=== PATIENT | female | born 1965 | race Caucasian/White ===

== ENCOUNTER 2019-01-17 14:36 | Emergency (ER) | payer SELFPAY ==
[2019-01-17] MEDS ORDERED: Sodium Chloride 0.9% 10 ML Syringe FLUSH PRN (15:13)
[2019-01-17] MEDS ORDERED: MVI, Adult with Vitamin K 10 ML, Thiamine 100 MG, Folic Acid 1 MG, Magnesium Sulfate 3 ... IV SCH ×5 (15:30)
[2019-01-17 15:57] LABS: ACETAMINOPHEN < 2.0 ug/mL
--- NOTE | 2019-01-17 16:32 | CR ---
CLINICAL DATA: Feeling ill. AP CHEST, 17 JAN 2019: No priors. The heart size is normal. There is a poorly defined infiltrate in the right middle lobe that obscures the right heart border, suspicious for pneumonia. The lungs are otherwise clear. No pneumothorax. No pleural effusions. There is a healed rib fracture on the right. No other significant findings. Job: [id number] MTDD
--- NOTE | 2019-01-17 16:52 | CT ---
DATE OF SERVICE: 01/17/2019 CLINICAL DATA: Severe hyponatremia Brain CT: Multislice acquisition of the brain without IV contrast was performed. No priors. There is diffuse cerebral atrophy. There are periventricular lucencies bilaterally consistent with small vessel ischemic change. No masses. No intracranial hemorrhage. No evidence of acute or subacute infarct. The suprasellar cistern does protrude into the sella flattening the pituitary along the floor of the sella consistent with an "empty sella". No osseous abnormalities. There is fluid in the left maxillary sinus consistent with sinusitis. MTDD
--- NOTE | 2019-01-17 17:21 | EDM.PDOC ---
ED HPI GENERAL MEDICAL PROBLEM - General Chief Complaint: Drug or Alcohol Abuse Stated Complaint: Patient states she feels ill Time Seen by Provider: 01/17/19 16:00 Source of Information: Reports: Patient, Family History Limitations: Reports: No Limitations - History of Present Illness INITIAL COMMENTS - FREE TEXT/NARRATIVE: This is a 53yo F with history of alcohol abuse here for concerns of not feeling well and family desiring help for placement into a detox center. Patient denies any pain, no shortness of breath or other concerns. and family feel she has been drinking too much. Patient agreeable to go to a detox center. 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 ED EXAM, GENERAL - Physical Exam Exam: See Below Exam Limited By: No Limitations General Appearance: Alert, WD/WN, No Apparent Distress Eye Exam: Bilateral Eye: EOMI, PERRL Ears: Normal External Exam Nose: Normal Inspection Throat/Mouth: Normal Inspection Head: Atraumatic, Normocephalic Neck: Normal Inspection Respiratory/Chest: No Respiratory Distress, Lungs Clear Cardiovascular: Normal Peripheral Pulses, Tachycardia GI/Abdominal: Normal Bowel Sounds (Female) Exam: Deferred Back Exam: Normal Inspection Extremities: Normal Inspection Neurological: Alert, Oriented, CN II-XII Intact, Normal Cognition, Normal Gait, Normal Reflexes, No Motor/Sensory Deficits Psychiatric: Normal Affect, Normal Mood Skin Exam: Warm, Dry, Intact, Normal Color, No Rash Course - Orders/Labs/Meds Orders: Active Orders 24 hr Category Date Time Status EKG Documentation Completion [RC] ASDIRECTED Care 01/17/19 15:12 Active UA RFX TANK AND CULT IF INDIC [URIN] Stat Lab 01/17/19 15:12 Ordered MVI, Adult with Vitamin K [Infuvite Adult] 10 ml Med 01/17/19 15:30 Active Thiamine [Vitamin B-1] 100 mg Folic Acid 1 mg Magnesium Sulfate [Magnesium Sulfate 50%] 3 gm Sodium Chloride 0.9% [Normal Saline] 1,000 ml IV ASDIRECTED Sodium Chloride 0.9% [Saline Flush] Med 01/17/19 15:13 Active 10 ml FLUSH ASDIRECTED PRN Peripheral IV Insertion Adult [OM.PC] Routine Oth 01/17/19 15:13 Ordered Medication Orders Multivitamins/Minerals 10 ml/Thiamine HCl 100 mg/ Folic Acid 1 mg/ Magnesium Sulfate 3 gm/ Sodium Chloride 1,017.2 mls @ 200 mls/hr IV ASDIRECTED KRYSTAL Sodium Chloride (Saline Flush) 10 ml FLUSH ASDIRECTED PRN PRN Reason: Keep Vein Open Labs: Laboratory Tests 01/17/19 01/17/19 01/17/19 Range/Units 15:11 15:20 15:20 WBC 8.5 (4.0-11.0) K/uL RBC 4.39 (3.80-5.80) M/uL Hgb 14.8 (11.5-16.5) g/dL Hct 37.9 (37.0-47.0) % MCV 86 (76-96) fL MCH 33.7 H (27.0-32.0) pg MCHC 39.1 H (31.0-35.0) g/dL RDW 12.4 (11.0-16.0) % Plt Count 162 D (150-500) K/uL MPV 10.5 H (6.0-10.0) fL Neut % (Auto) 84.9 H (45.0-70.0) % Lymph % (Auto) 6.2 L (20.0-40.0) % [place] % (Auto) 8.8 (3.0-10.0) % Eos % (Auto) 0.0 L (1.0-5.0) % Baso % (Auto) 0.1 (0.0-0.5) % Neut # (Auto) 7.21 (2.00-7.50) K/uL Lymph # (Auto) 0.53 L (1.50-4.00) K/uL [place] # (Auto) 0.75 (0.20-0.80) K/uL Eos # (Auto) 0.00 L (0.04-0.40) K/uL Baso # (Auto) 0.01 L (0.02-0.10) K/uL Sodium 101 L* D (136-145) mmol/L Potassium 3.6 D (3.5-5.1) mmol/L Chloride 64 L* D (98-107) mmol/L Carbon Dioxide 26.8 (21.0-32.0) mmol/L Anion Gap 13.8 (5.0-15.0) mmol/L BUN 4 L D (8-26) mg/dL Creatinine 0.46 L D (0.55-1.02) mg/dL Est Cr Clr Drug Dosing TNP Estimated GFR (MDRD) > 60 (>60) MLS/MIN BUN/Creatinine Ratio 8.7 (6-25) Glucose 107 H D (74-100) mg/dL Calcium 7.5 L (8.5-10.1) mg/dL Total Bilirubin 1.0 D (0.0-1.0) mg/dL AST 74 H (15-37) U/L ALT 71 (12-78) U/L Alkaline Phosphatase 151 H (46-116) U/L Troponin I 0.031 D (0.000-0.060) ng/mL B-Natriuretic Peptide 2484 H D (0-125) pg/mL Total Protein 6.7 (6.4-8.2) g/dL Albumin 3.0 L (3.4-5.0) g/dL Globulin 3.7 (2.2-4.2) g/dL Albumin/Globulin Ratio 0.8 (0.8-2.0) TSH, Ultra Sensitive 1.343 D (0.358-3.740) uIU/mL Acetaminophen < 2.0 ug/mL Ethyl Alcohol 10.0 H (0.0-0.0) mg/dL Meds: Medications Generic Name Dose Route Start Last Admin Trade Name Freq PRN Reason Stop Dose Admin Multivitamins/Minerals 10 ml/ 1,017.2 mls @ 200 mls/hr 01/17/19 15:30 Thiamine HCl 100 mg/ Folic IV Acid 1 mg/ Magnesium Sulfate 3 ASDIRECTED KRYSTAL gm/ Sodium Chloride Sodium Chloride 10 ml 01/17/19 15:13 Saline Flush FLUSH ASDIRECTED PRN Keep Vein Open Departure - Departure Time of Disposition: 18:00 Disposition: DC/Tfer to Acute Hospital 02 Condition: Undetermined Clinical Impression: Alcohol abuse, Hyponatremia - Discharge Information Instructions: Alcohol Use Disorder Referrals: PCP,None [Primary Care Provider] - Forms: ED Department Discharge - Problem List & Annotations (1) Alcohol abuse SNOMED Code(s): 87796895 Code(s): F10.10 - ALCOHOL ABUSE, UNCOMPLICATED Status: Acute Priority: High Current Visit: Yes (2) Hyponatremia SNOMED Code(s): 22619992 Code(s): E87.1 - HYPO-OSMOLALITY AND HYPONATREMIA Status: Acute Priority : High Current Visit: Yes - Problem List Review Problem List Initiated/Reviewed/Updated: Yes - My Orders Last 24 Hours: My Active Orders 01/17/19 15:12 EKG Documentation Completion [RC] ASDIRECTED UA RFX TANK AND CULT IF INDIC [URIN] Stat 01/17/19 15:13 Sodium Chloride 0.9% [Saline Flush] 10 ml FLUSH ASDIRECTED PRN Peripheral IV Insertion Adult [OM.PC] Routine 01/17/19 15:30 MVI, Adult with Vitamin K [Infuvite Adult] 10 ml Thiamine [Vitamin B-1] 100 mg Folic Acid 1 mg Magnesium Sulfate [Magnesium Sulfate 50%] 3 gm Sodium Chloride 0.9% [Normal Saline] 1,000 ml IV ASDIRECTED - Assessment/Plan Last 24 Hours: My Active Orders 01/17/19 15:12 EKG Documentation Completion [RC] ASDIRECTED UA RFX TANK AND CULT IF INDIC [URIN] Stat 01/17/19 15:13 Sodium Chloride 0.9% [Saline Flush] 10 ml FLUSH ASDIRECTED PRN Peripheral IV Insertion Adult [OM.PC] Routine 01/17/19 15:30 MVI, Adult with Vitamin K [Infuvite Adult] 10 ml Thiamine [Vitamin B-1] 100 mg Folic Acid 1 mg Magnesium Sulfate [Magnesium Sulfate 50%] 3 gm Sodium Chloride 0.9% [Normal Saline] 1,000 ml IV ASDIRECTED Plan: Discussed plan of care and consulted hospitalist. Patient will be transferred to [facility] under care of Dr. Machado. Patient and family in agreement with plan. Patient to go via [facility].
== END 2019-01-17 18:10 ==
LOC: LB.ED 14:36
DX: F10.10 Alcohol abuse, uncomplicated (principal); E87.1 Hypo-osmolality and hyponatremia; Y90.5 Blood alcohol level of 100-119 mg/100 ml; I10 Essential (primary) hypertension
CPT/HCPCS: 36415; 70450; 71045; 80053; 83880; 84443; 84484; 85025; 93005; 96365; 96366; 99285; G0480; J3411; J3475; J7030; J3490